=== PATIENT | male | born 1985 | race Caucasian/White ===

== ENCOUNTER 2021-11-12 18:06 | Emergency (ER) | payer OTHER, SELFPAY ==
--- NOTE | ~2021-11-12 | CT_ITS ---
EXAMINATION: CT abdomen pelvis wo con DATE: 11/12/2021 20:26 INDICATION: History of pancreatitis. TECHNIQUE: Computed tomography (CT) of the abdomen and pelvis was performed without intravenous contr ast. The dose-length product was 1323.66 mGy-cm. Automated exposure control and iterative reconstruct ion technique were employed. COMPARISON: None. FINDINGS: Heart size normal. No significant pleural or pericardial effusion. No significant vascular abnormality. No lymphadenopathy. The liver, spleen, adrenal glands and right kidney are unremarkable. There is a punctate 3 mm nonobstructing left renal stone. Nonspecific bilateral perinephric strandin g, likely chronic. Gallbladder is present. There is focal calcification in the pancreatic head. No significant biliary dilatation. There is flui d/stranding surrounding the pancreatic body, consistent with pancreatitis. No evidence for pseudocyst formation. Nonobstructive bowel gas pattern. Normal appendix. There is a left hip arthroplasty. No acute osseous abnormality. IMPRESSION: 1. Mild acute uncomplicated pancreatitis. Focal pancreatic calcification at the head may represent a parenchymal calcification from chronic pancreatitis or choledocholithiasis. No significant biliary di latation. Consider correlation with MRCP. 2: Nonobstructing left nephrolithiasis. Reviewed, dictated and finalized at location A. IMPRESSION: 1. Mild acute uncomplicated pancreatitis. Focal pancreatic calcification at the head may represent a parenchymal calcification from chronic pancreatitis or ch oledocholithiasis. No significant biliary dilatation. Consider correlation with MRCP. 2: Nonobstructing left nephrolithiasis.
[2021-11-12 19:27] VITALS: BP 136/92; PULSE 125; RESP 19; TEMP 37.1; O2SAT 98
--- NOTE | 2021-11-12 19:52 | ED.ABDPAIN ---
HPI - Abdominal Pain General Chief Complaint: Abdominal Pain Stated Complaint: suspects pancreatitis Source: patient Mode of arrival: ambulatory Limitations: no limitations History of Present Illness HPI narrative: Patient is a 36-year-old white male with history of pancreatitis idiopathic 3 or 4 times. Presents to the emergency room complaining of left upper and upper abdominal pain that he relates to possible pancreatitis again. He has been staying home eating chicken broth and fluids he had 1 Percocet last night that he had left over from an old injury. Denies any nausea vomiting or diarrhea. Denies any problems coughing chest pain shortness of breath bleeding or bruising or fever. This pain is been constant rated as a 7/10. He used some Aleve today without much relief. Describes the pain as sharp nonradiating. Related Data Home Medications Medication Instructions Recorded Confirmed amlodipine 5 mg-olmesartan 20 mg 1 tablet PO DAILY 11/12/21 11/12/21 tablet aripiprazole 10 mg tablet 10 mg PO DAILY 11/12/21 11/12/21 dextroamphetamine-amphetamine ER 30 mg PO DAILY 11/12/21 11/12/21 30 mg 24hr capsule,extend release fluvoxamine 100 mg tablet 200 mg PO DAILY 11/12/21 11/12/21 lamotrigine 200 mg tablet 200 mg PO DAILY 11/12/21 11/12/21 lorazepam 1 mg tablet 1 mg PO TID PRN Anxiety 11/12/21 11/12/21 olanzapine 10 mg tablet 10 mg PO HS 11/12/21 11/12/21 propranolol 10 mg tablet 10 mg PO BID 11/12/21 11/12/21 Allergies Allergy/AdvReac Type Severity Reaction Status Date / Time No Known Allergies Allergy Verified 11/12/21 19:23 Review of Systems Review of Systems: All systems reviewed & are unremarkable except as noted in HPI and below Constitutional: Constitutional: Reports as per HPI and Reports no additional constitutional complaints Eyes: Eyes: Reports no additional eye complaints ENT: Reports system reviewed and no additional complaints, except as documented Cardiovascular: Cardiovascular: Reports no additional cardiovascular complaints and Denies chest pain Respiratory: Respiratory: Reports as per HPI and Reports no additional respiratory complaints Gastrointestinal: Gastrointestinal: Reports as per HPI and Reports no additional gastrointestinal complaints Genitourinary: Genitourinary: Reports no additional male genitourinary complaints and Reports as per HPI Musculoskeletal: Musculoskeletal: Reports no additional musculoskeletal complaints Integumentary/Breasts: Skin/Breast: Reports system reviewed and no additional complaints, except as docu Neurologic: Reports system reviewed and no additional complaints, except as documented Psychiatric: Psychiatric: Reports no additional psychiatric complaints PMFSH Past Medical History Medical History (Updated 11/12/21 @ 22:19 by Amadeo Villalta MD) Pancreatitis due to biliary obstruction Surgical History Surgical History (Updated 11/12/21 @ 20:08 by Amadeo Villalta MD) History of left hip replacement Exam Const: General: healthy appearing Nutritional Appearance: well nourished Orientation/consciousness: patient oriented x3 Limitations: no limitations Other: patient is a white male appears no apparent distress sitting up reading a book. Oropharynx is clear with moist mucous membranes neck is supple no lymphadenopathy lungs are clear heart is regular rate and rhythm without murmurs gallops rubs. Abdomen soft minimal upper epigastric tenderness without rebound no hepatosplenomegaly or masses no CVA tenderness. Bowel sounds are present and normal. Back is nontender. Extremities no cyanosis clubbing or edema. Neurologically he is alert and oriented x4 motor and sensory grossly intact. Course Course Emergency Course: Patient was started on a L fluid bolus normal saline given Zofran 4 mg IV and Toradol [address] his abdomen and pelvis was done without contrast showed impression mild peripancreatic stranding is concerning for acute p
[2021-11-12] MEDS: ONDANSETRON INJ 4 MG/2 ML VIAL IV PUSH (20:06)
[2021-11-12] MEDS: KETOROLAC 30 MG/ML VIAL (*BKC) IV PUSH (20:06)
[2021-11-12] MEDS: SODIUM CHLORIDE 0.9% IV 1,000 ML 999 ML IV CONT (20:07)
[2021-11-12 20:17] LABS: Basophils Absolute Auto 0.07 K/mm3 (0.00-0.10); Basophils Percent Auto 0.6 % (0.0-1.0); Eosinophils Absolute Auto 0.08 K/mm3 (0.02-0.50); Eosinophils Percent Auto 0.7 % (1.0-6.0); Hematocrit 45.6 % (40.0-54.0); Hemoglobin 15.4 g/dL (14.0-18.0); Immature Granulocyte Absolute 0.07 K/mm3 (0.00-0.00); Immature Granulocyte Percent A 0.6 % (0.0-0.0); Lymphocytes Percent Auto 13.1 % (18.0-42.0); Mean Corpuscular HGB Conc 33.8 g/dL (32.0-36.0); Mean Corpuscular Hemoglobin 29.8 pg (27.0-31.0); Mean Corpuscular Volume 88.4 fL (78.0-102.0); Mean Platelet Volume 8.9 fl (8.7-11.0); Monocytes Absolute Auto 1.03 K/mm3 (0.10-0.90); Monocytes Percent Auto 8.4 % (2.0-11.0); Neutrophils Absolute Auto 9.4 K/mm3 (1.7-7.2); Neutrophils Percent Auto 76.6 % (50.0-70.0); Platelet Count Result 295 K/mm3 (150-420); Red Blood Count 5.16 M/mm3 (4.70-6.10); Red Cell Distribution Width 14.6 % (11.6-14.4); White Blood Count 12.2 K/mm3 (4.8-10.8)
[2021-11-12 20:31] LABS: Alanine Aminotransferase 45 U/L (16-63); Albumin Level 3.4 g/dL (3.4-5.0); Alkaline Phosphatase 100 U/L (46-116); Anion Gap 8 mmol/L (8-16); Aspartate Amino Transferase 36 U/L (15-37); Bilirubin,Total 0.4 mg/dL (0.00-1.00); Blood Urea Nitrogen 26 mg/dL (7-18); Calcium 9.2 mg/dL (8.5-10.1); Carbon Dioxide 30 mmol/L (21-32); Chloride 100 mmol/L (98-108); Estimated CRCL calculation 86 ml/min; Estimated Glomerular Filt Rate 59; Glucose 117 mg/dL (70-99); Lipase 186 U/L (73-393); Osmolality Calculated 291 mOsm/kg (285-295); Potassium 4.1 mmol/L (3.5-5.1); Sodium 138 mmol/L (136-145); Total Protein 7.9 g/dL (6.4-8.2)
[2021-11-12 20:37] LABS: Lactic Acid Reflex 0.9 mmol/L (0.4-2.0)
--- NOTE | 2021-11-12 23:02 | PC.NURSE ---
patient provided with a kidney stone filter funnel
[2021-11-12 23:05] VITALS: BP 130/90; PULSE 92; RESP 18; TEMP 36.4; O2SAT 100
== END 2021-11-12 23:07 | disposition home or self-care (01) ==
PROVIDERS: Emergency Provider Emergency Medicine
DX: R10.9 Unspecified abdominal pain (principal); K85.90 Acute pancreatitis without necrosis or infection, unspecified; N20.0 Calculus of kidney
CPT/HCPCS: 36415; 74176; 80053; 83605; 83690; 85025; 96361; 96374; 96375; 99284; J1885; J2405; J7030

== ENCOUNTER 2024-01-08 17:12 | Emergency (ER) | payer MEDICARE, MEDICAID, SELFPAY ==
[2024-01-08 17:13] VITALS: BP 138/97; PULSE 117; RESP 18; TEMP 36.7; O2SAT 99
--- NOTE | 2024-01-08 17:18 | ED_ITS ---
HPI - General Adult General Chief complaint: Unspecified Stated complaint: high blood sugar Time Seen by Provider: 01/08/24 17:18 Source: patient Mode of arrival: ambulatory Limitations: no limitations History of Present Illness HPI narrative: 38-year-old male with a history of bipolar, chronic pancreatitis secondary to pancreatic divisum, diabetes mellitus on metformin presents to the ED with -- elevated blood sugars. His sugars have been more than 450. He has polyuria/ polydipsia. Patient is on metformin. No obvious infections noted. Onset (ago): day(s) Related Data Home Medications Medication Instructions Recorded Confirmed amlodipine 10 mg-olmesartan 40 mg 1 tablet PO DAILY 01/08/24 01/08/24 tablet dextroamphetamine-amphetamine 20 20 mg PO BID 01/08/24 01/08/24 mg tablet fluvoxamine 100 mg tablet 200 mg PO DAILY 01/08/24 01/08/24 lamotrigine 200 mg tablet 200 mg PO DAILY 01/08/24 01/08/24 lorazepam 1 mg tablet 1 mg PO BID 01/08/24 01/08/24 metformin 1,000 mg tablet 1,000 mg PO BID 01/08/24 01/08/24 olanzapine 20 mg tablet 20 mg PO HS 01/08/24 01/08/24 ondansetron 4 mg disintegrating 1 mg PO Q8H 01/08/24 01/08/24 tablet oxycodone-acetaminophen 10 mg-325 1 tablet PO Q8H PRN Pain 01/08/24 01/08/24 mg tablet propranolol 10 mg tablet 10 mg PO BID 01/08/24 01/08/24 trazodone 150 mg tablet 150 mg PO HS 01/08/24 01/08/24 Allergies Allergy/AdvReac Type Severity Reaction Status Date / Time No Known Allergies Allergy Verified 01/08/24 17:14 Review of Systems Review of Systems: All systems reviewed & are unremarkable except as noted in HPI and below Constitutional: Constitutional: Reports as per HPI and Reports no additional constitutional complaints Eyes: Eyes: Reports as per HPI and Reports no additional eye complaints ENT: Reports system reviewed and no additional complaints, except as documented and Reports as per HPI Cardiovascular: Cardiovascular: Reports as per HPI and Reports no additional cardiovascular complaints Respiratory: Respiratory: Reports as per HPI and Reports no additional resp iratory complaints Gastrointestinal: Gastrointestinal: Reports as per HPI and Reports no additional gastrointestinal complaints Genitourinary: Genitourinary: Reports no additional male genitourinary complaints and Reports as per HPI Musculoskeletal: Musculoskeletal: Reports no additional musculoskeletal complaints and Reports as per HPI Integumentary/Breasts: Skin/Breast: Reports system reviewed and no additional complaints, except as docu and Reports as per HPI Neurologic: Reports system reviewed and no additional complaints, except as documented and Reports as per HPI Psychiatric: Psychiatric: Reports no additional psychiatric complaints and Reports as per HPI Endocrine: Endocrine: Reports no additional endocrine complaints and Reports as per HPI Hematologic/Lymphatic: Hematologic/Lymphatic: Reports no additional hematologic/lymphatic complaints and Reports as per HPI Allergic/Immunologic: Allergic/Immunologic: Reports no additional allergic/immunologic complaints and Reports as per HPI [facility] Past Medical History Medical History (Updated 01/09/24 @ 00:53 by Wade Jay MD) Diabetes mellitus Pancreatic divisum Pancreatitis due to biliary obstruction Surgical History Surgical History (Updated 11/12/21 @ 20:08 by Amadeo Villalta MD) History of left hip replacement Exam Narrative: hypertension the blood pressure 138/97 with a heart rate of 117. Oxygen saturation of 99% on room air. Const: General: cooperative, healthy appearing and comfortable HENMT: Head: normal to inspection, normocephalic and atraumatic Ears: hearing grossly normal bilaterally, external ears normal and TM's normal bilaterally Face/Nose/Sinus: Normal external nose present and Normal nares present Face and sinus: normal facial exam Mouth: Yes Normal oral and palatal mucosa present, Yes lip normal and Yes tongue normal Throat: pos terior oropharynx normal Eyes: General: appearance normal, both eyes and all related structures Neck: Neck: normal visual inspection, full ROM, no lymphadenopathy and no meningeal signs Chest: Chest palpation & inspection: normal inspection of the chest Resp: Effort & Inspection: normal respiratory effort Auscultation: clear to auscultation bilaterally Cardio: Palpation: normal PMI Rate: regular rate Rhythm: regular rhythm Heart sounds: S1 normal heart sound present and S2 normal heart sound present GI: Inspection: normal to inspection Auscultation: normal bowel sounds and other ( No tenderness/rigidity / rebound.) : General: Yes no CVA tenderness Back/Spine/Pelvis: Back: no CVA tenderness Skin: General skin exam: normal color, no rashes or lesions noted, elasticity normal and turgor normal Neuro: General: oriented to person, oriented to place and oriented to time Extrem: General: normal to inspection, full ROM and capillary refill normal Psych: Appearance: grossly normal and well kempt Course Course Emergency Course: Chronic pancreatitis elevated blood sugars Vital Signs Vital signs: Vital Signs Temperature 36.7 C 01/08/24 17:13 Pulse Rate 117 H 01/08/24 17:13 Respiratory Rate 18 01/08/24 17:13 Blood Pressure 138/97 H 01/08/24 17:13 Pulse Oximetry 99 01/08/24 17:13 Oxygen Delivery Room Air 01/08/24 17:13 Temperature 36.6 C 01/08/24 20:56 Pulse Rate 84 01/08/24 20:56 Respiratory Rate 18 01/08/24 20:56 Blood Pressure 132/81 01/08/24 20:56 Pulse Oximetry 97 01/08/24 20:56 Oxygen Delivery Room Air 01/08/24 20:56 Medical Decision Making [facility] Narrative Medical decision making narrative: diabetes mellitus with uncontrolled hyperglycemia hypo magnesemia Differential Diagnosis Differential Diagnosis: diabetic ketoacidosis. hyperosmolar nonketotic Vital Signs Vital Signs: Vital Signs Temperature 36.7 C 01/08/24 17:13 Pulse Rate 117 H 01/08/24 17:13 Respiratory Rate 18 01/08/24 17:13 Blood Pressure 138/97 H 01/08/24 17:13 Pulse Oximetry 99 01/08/24 17:13 Oxygen Delivery Room Air 01/08/24 17:13 Temperature 36.6 C 01/08/24 20:56 Pulse Rate 84 01/08/24 20:56 Respiratory Rate 18 01/08/24 20:56 Blood Pressure 132/81 01/08/24 20:56 Pulse Oximetry 97 01/08/24 20:56 Oxygen Delivery Room Air 01/08/24 20:56 Lab Data 01/08/24 17:41 01/08/24 17:40 Labs: Lab Results 01/08/24 01/08/24 01/08/24 Range/Units 17:18 17:40 17:41 WBC 15.5 H (4.8-10.8) K/mm3 RBC 5.57 (4.70-6.10) M/mm3 Hgb 16.3 (14.0-18.0) g/dL Hct 45.4 (40.0-54.0) % MCV 81.5 (78.0-102.0) fL MCH 29.3 (27.0-31.0) pg MCHC 35.9 (32-36) g/dL RDW 12.5 (11.6-14.4) % Plt Count 379 (150-420) K/mm3 MPV 9.3 (8.7-11.0) fl Immature Gran % (Auto) 0.7 H (0.0-0.0) % Neut % (Auto) 67.3 (50.0-70.0) % Lymph % (Auto) 24.7 (18.0-42.0) % [place] % (Auto) 5.6 (2.0-11.0) % Eos % (Auto) 1.1 (1.0-6.0) % Baso % (Auto) 0.6 (0.0-1.0) % Lymph # (Auto) 3.81 (1.10-4.50) K/mm3 [place] # (Auto) 0.87 (0.10-0.90) K/mm3 Eos # (Auto) 0.17 (0.02-0.50) K/mm3 Baso # (Auto) 0.09 (0.00-0.10) K/mm3 Abs Immat Gran (auto) 0.11 H (0.00-0.00) K/mm3 Absolute Neuts (auto) 10.40 H (1.70-7.20) K/mm3 Absolute Nucleated RBC 0.00 (0.00-0.00) K/mm3 Nucleated RBC % 0.0 (0-0.0) % Sodium 129 L (136-145) mmol/L Potassium 4.3 (3.5-5.1) mmol/L Chloride 92 L (98-108) mmol/L Carbon Dioxide 29 (21-32) mmol/L Anion Gap 8 (4-12) mmol/L BUN 16 (7-18) mg/dL Creatinine 1.17 (0.70-1.30) mg/dL Estim Creat Clear Calc 83 ml/min Estimated GFR > 60 (59 - ) Glucose 496 H* (70-99) mg/dL POC Capillary Glucose 434 H (65-105) mg/dl Calculated Osmolality 291 (285-295) mOsm/kg Lactic Acid 2.0 (0.4-2.0) mmol/L Calcium 10.0 (8.5-10.1) mg/dL Magnesium 1.3 L (1.8-2.4) mg/dL Total Bilirubin 0.4 (0.00-1.00) mg/dL AST < 10 L (15-37) U/L ALT 20 (16-63) U/L Alkaline Phosphatase 112 (46-116) U/L Total Protein 8.1 (6.4-8.2) g/dL Albumin 4.0 (3.4-5.0) g/dL Lipase 18 (16-77) U/L Urine Color (Yellow) Urine Appearance (Clear) Urine pH (5.0-8.0) Ur Specific [place] (1.010-1.020) Urine Protein (Negative) Urine Glucose (UA) (Negative) Urine Ketones (Negative) Ur Blood (Man) (Negative) Urine Nitrate (Negative) Urine Bilirubin (Negative) Urine Urobilinogen (0.2-1.0) mg/dL Leukocyte Esterase Rfl (Negative) JOANNA/UL 01/08/24 01/08/24 01/08/24 Range/Units 17:42 20:02 20:47 WBC (4.8-10.8) K/mm3 RBC (4.70-6.10) M/mm3 Hgb (14.0-18.0) g/dL Hct (40.0-54.0) % MCV (78.0-102.0) fL MCH (27.0-31.0) pg MCHC (32-36) g/dL RDW (11.6-14.4) % Plt Count (150-420) K/mm3 MPV (8.7-11.0) fl Immature Gran % (Auto) (0.0-0.0) % Neut % (Auto) (50.0-70.0) % Lymph % (Auto) (18.0-42.0) % [place] % (Auto) (2.0-11.0) % Eos % (Auto) (1.0-6.0) % Baso % (Auto) (0.0-1.0) % Lymph # (Auto) (1.10-4.50) K/mm3 [place] # (Auto) (0.10-0.90) K/mm3 Eos # (Auto) (0.02-0.50) K/mm3 Baso # (Auto) (0.00-0.10) K/mm3 Abs Immat Gran (auto) (0.00-0.00) K/mm3 Absolute Neuts (auto) (1.70-7.20) K/mm3 Absolute Nucleated RBC (0.00-0.00) K/mm3 Nucleated RBC % (0-0.0) % Sodium (136-145) mmol/L Potassium (3.5-5.1) mmol/L Chloride (98-108) mmol/L Carbon Dioxide (21-32) mmol/L Anion Gap (4-12) mmol/L BUN (7-18) mg/dL Creatinine (0.70-1.30) mg/dL Estim Creat Clear Calc ml/min Estimated GFR (59 - ) Glucose (70-99) mg/dL POC Capillary Glucose 372 H 334 H (65-105) mg/dl Calculated Osmolality (285-295) mOsm/kg Lactic Acid (0.4-2.0) mmol/L Calcium (8.5-10.1) mg/dL Magnesium (1.8-2.4) mg/dL Total Bilirubin (0.00-1.00) mg/dL AST (15-37) U/L ALT (16-63) U/L Alkaline Phosphatase (46-116) U/L Total Protein (6.4-8.2) g/dL Albumin (3.4-5.0) g/dL Lipase (16-77) U/L Urine Color Light yellow (Yellow) Urine Appearance Clear (Clear) Urine pH 5.5 (5.0-8.0) Ur Specific [place] 1.010 (1.010-1.020) Urine Protein Negative (Negative) Urine Glucose (UA) 3+ H (Negative) Urine Ketones 1+ H (Negative) Ur Blood (Man) Negative (Negative) Urine Nitrate Negative (Negative) Urine Bilirubin Negative (Negative) Urine Urobilinogen 0.2 (0.2-1.0) mg/dL Leukocyte Esterase Rfl Negative (Negative) JOANNA/UL Discharge Plan Discharge Clinical Impression: Hyperglycemia due to type 2 diabetes mellitus Qualifiers: Diabetes mellitus retirement insulin use: without long term care phlebotomist use Qualified Code(s): E11.65 - Type 2 diabetes mellitus with hyperglycemia Chronic pancreatitis Qualifiers: Pancreatitis type: idiopathic Qualified Code(s): K86.1 - Other chronic pancreatitis Patient Disposition: Home, Self-Care Condition: Stable Instructions: Antibiotic Form, Pancreatitis (ED), Diabetic Hyperglycemia (ED) Patient Language: Ivorian Prescriptions: New pioglitazone 15 mg tablet 15 mg PO DAILY Qty: 30 0RF glipizide 5 mg tablet 5 mg PO DAILY Qty: 30 0RF No Action lamotrigine 200 mg tablet 200 mg PO DAILY propranolol 10 mg tablet 10 mg PO BID oxycodone-acetaminophen 10-325 mg tablet 1 tablet PO Q8H PRN (Reason: Pain) fluvoxamine 100 mg tablet 200 mg PO DAILY trazodone 150 mg tablet 150 mg PO HS metformin 1,000 mg tablet 1,000 mg PO BID dextroamphetamine-amphetamine 20 mg tablet 20 mg PO BID lorazepam 1 mg tablet 1 mg PO BID ondansetron 4 mg tablet,disintegrating 1 mg PO Q8H olanzapine 20 mg tablet 20 mg PO HS amlodipine-olmesartan 10-40 mg tablet 1 tablet PO DAILY Follow-up/Referrals: UNKNOWN,DOCTOR [Non-Staff] - Time of Disposition: 00:53
[2024-01-08 17:20] LABS: Glucose Point of Care 434 mg/dl (65-105)
--- NOTE | 2024-01-08 17:25 | PC.NURSE ---
Blood glucose 434
[2024-01-08 17:44] LABS: Basophils Absolute Auto 0.09 K/mm3 (0.00-0.10); Basophils Percent Auto 0.6 % (0.0-1.0); Eosinophils Absolute Auto 0.17 K/mm3 (0.02-0.50); Eosinophils Percent Auto 1.1 % (1.0-6.0); Hematocrit 45.4 % (40.0-54.0); Hemoglobin 16.3 g/dL (14.0-18.0); Immature Granulocyte Absolute 0.11 K/mm3 (0.00-0.00); Immature Granulocyte Percent A 0.7 % (0.0-0.0); Lymphocytes Absolute Auto 3.81 K/mm3 (1.10-4.50); Lymphocytes Percent Auto 24.7 % (18.0-42.0); Mean Corpuscular HGB Conc 35.9 g/dL (32-36); Mean Corpuscular Hemoglobin 29.3 pg (27.0-31.0); Mean Corpuscular Volume 81.5 fL (78.0-102.0); Mean Platelet Volume 9.3 fl (8.7-11.0); Monocytes Absolute Auto 0.87 K/mm3 (0.10-0.90); Monocytes Percent Auto 5.6 % (2.0-11.0); Neutrophils Percent Auto 67.3 % (50.0-70.0); Platelet Count Result 379 K/mm3 (150-420); Red Blood Count 5.57 M/mm3 (4.70-6.10); Red Cell Distribution Width 12.5 % (11.6-14.4); White Blood Count 15.5 K/mm3 (4.8-10.8)
[2024-01-08 17:45] LABS: Add Urine Microscopic? NO; Appearance Urine Clear (Clear); Bilirubin Urine Negative (Negative); Blood Urine Negative (Negative); Color Urine Light Yellow (Yellow); Glucose Urine UA 3+ (Negative); Ketones Urine 1+ (Negative); Leukocyte Esterase Ur Negative LEU/UL (Negative); Nitrate Urine Negative (Negative); Protein Urine Negative (Negative); Urobilinogen Urine 0.2 mg/dL (0.2-1.0); pH Urine 5.5 (5.0-8.0)
[2024-01-08 17:59] LABS: Alanine Aminotransferase 20 U/L (16-63); Alkaline Phosphatase 112 U/L (46-116); Anion Gap 8 mmol/L (4-12); Aspartate Amino Transferase < 10 U/L (15-37); Bilirubin,Total 0.4 mg/dL (0.00-1.00); Blood Urea Nitrogen 16 mg/dL (7-18); Carbon Dioxide 29 mmol/L (21-32); Chloride 92 mmol/L (98-108); Estimated CRCL calculation 83 ml/min; Estimated Glomerular Filt Rate > 60; Lipase 18 U/L (16-77); Osmolality Calculated 291 mOsm/kg (285-295); Potassium 4.3 mmol/L (3.5-5.1); Sodium 129 mmol/L (136-145); Total Protein 8.1 g/dL (6.4-8.2)
[2024-01-08 18:00] VITALS: BP 117/78; PULSE 70; RESP 16; O2SAT 99
[2024-01-08 18:01] LABS: Glucose 496 mg/dL (70-99); Magnesium 1.3 mg/dL (1.8-2.4)
[2024-01-08] MEDS: SODIUM CHLORIDE 0.9% IV 1,000 ML 999 ML IV CONT (18:27)
[2024-01-08] MEDS: MAGNESIUM SULF 2 GM/WATER 50ML 2 GM/50 ML BAG IVPB (18:28)
[2024-01-08 18:30] VITALS: BP 121/76; PULSE 95; RESP 17; O2SAT 97
[2024-01-08] MEDS: oxyCODONE/ACETAMINOPHEN (*CRX) 5-325 MG TABLET 1 TABLET PO (18:59)
--- NOTE | 2024-01-08 19:05 | PC.NURSE ---
Report received, pt resting, VSS, no needs at this time. IVF infusing as per order.
[2024-01-08] MEDS: INSULIN HUMAN REGULAR (*BKC) 1,000 UNITS/10 ML VIAL 5 UNITS SUB-Q ×2 (19:22→20:11)
[2024-01-08 19:34] VITALS: BP 129/83; PULSE 85; RESP 18; O2SAT 95
[2024-01-08 20:04] LABS: Glucose Point of Care 372 mg/dl (65-105)
--- NOTE | 2024-01-08 20:39 | PC.NURSE ---
Pt given food tray to eat and drink, will recheck another BS before d/c home. Pt sitting bedside and instructions and Rx given to fill at pharmacy in AM.
[2024-01-08 20:48] LABS: Glucose Point of Care 334 mg/dl (65-105)
[2024-01-08 20:56] VITALS: BP 132/81; PULSE 84; RESP 18; TEMP 36.6; O2SAT 97
== END 2024-01-08 20:56 | disposition home or self-care (01) ==
PROVIDERS: Emergency Provider Internal Medicine Critical Care Medicine
DX: E11.65 Type 2 diabetes mellitus with hyperglycemia (principal); K86.1 Other chronic pancreatitis; Z79.84 Long term (current) use of oral hypoglycemic drugs; Z79.891 Long term (current) use of opiate analgesic; Z79.899 Other long term (current) drug therapy
CPT/HCPCS: 36415; 80053; 81003; 82948; 83605; 83690; 83735; 85025; 96365; 96366; 99284; A9270; J1815; J3475; J7030